=== PATIENT | female | born 1995 ===

== ENCOUNTER → 2020-05-23 | Outpatient (CLI) | payer SELFPAY | LOC: LAB SHORT 13:36 → LAB 13:36 | DX: E03.9 Hypothyroidism, unspecified (principal); R53.83 Other fatigue ==

== ENCOUNTER → 2021-07-22 | Outpatient (CLI) | payer OTHER | END | disposition home or self-care (01) | LOC: LAB SHORT 17:09 | PROVIDERS: Nurse Practitioner Family | DX: Z01.419 Encounter for gynecological examination (general) (routine) without abnormal findings (principal) | CPT/HCPCS: 88142 ==

== ENCOUNTER 2024-04-16 07:02 | Emergency (ER) | payer OTHER ==
[~2024-04-16] VITALS: Ht 157.5 cm; Wt 68.0 kg
[2024-04-16] MEDS ORDERED: HyDROXyzine HCl 25 MG Tab PO ONE (08:10)
[2024-04-16] MEDS ORDERED: Lidocaine/Tetracaine/Epinephr 3 ML GEL SYRINGE TOP ONE (08:40)
[2024-04-16] MEDS ORDERED: AMOCLA875 PO (09:35)
[2024-04-16 10:05] VITALS: BP 124/76
== END 2024-04-16 10:05 | disposition home or self-care (01) ==
LOC: ER 07:02
DX: S01.151A Open bite of right eyelid and periocular area, initial encounter (principal); S01.451A Open bite of right cheek and temporomandibular area, initial encounter; W54.0XXA Bitten by dog, initial encounter
CPT/HCPCS: 12013; 99283-25

== ENCOUNTER → 2024-07-05 | Outpatient (CLI) | payer OTHER ==
[~2024-07-05] MED LIST: AMOCLA875 PO
[2024-07-13 04:04] LABS: HPV HIGH RISK BY TMA Not Detected; HPV SOURCE Cervical
== END | disposition home or self-care (01) ==
LOC: LAB 16:45 → LAB SHORT 16:45
PROVIDERS: Physician Assistant
DX: Z01.419 Encounter for gynecological examination (general) (routine) without abnormal findings (principal)
CPT/HCPCS: 87624; G0123

== ENCOUNTER → 2025-03-07 | Outpatient (CLI) | payer OTHER | LOC: LAB 17:31 → LAB SHORT 17:31 | DX: N39.0 Urinary tract infection, site not specified (principal) | CPT/HCPCS: 87077; 87086; 87186 ==